=== PATIENT | female | born 2000 | race Caucasian/White ===

== ENCOUNTER 2024-03-03 13:30 | Emergency (ER) | payer SELFPAY ==
[2024-03-03 14:05] VITALS: BP 144/96; PULSE 81; RESP 16; TEMP 36.7; O2SAT 97; BMI 33.5
--- NOTE | 2024-03-03 14:46 | ED_ITS ---
HPI - COVID General: Chief Complaint: Upper Respiratory Infection Stated Complaint: Sore thoart, body aches Time Seen by Provider: 03/03/24 13:35 Source: patient and family Mode of arrival: ambulatory Limitations: no limitations Triage information: Has fever, cough or shortness of breath . Exposure to COVID + person last 14 days History of Present Illness: Patient is a 24-year-old female who presents to ED today along with her significant other and [id number] child all 3 of which are being seen for similar symptoms. Patient states approximately 3 days ago she began developing body aches, chills, low grade subjective fevers that have subsided, non- productive cough, nasal and congestion. She states her significant other began feeling similarly the day before. She states they were recently around her father who was sick with fevers. Patient is not having any abdominal pain or diarrhea. No neck pain or stiffness. No rash. No visual changes. Patient arr keli with stable vital signs. MD complaint: has COVID symptoms Prior covid testing: no COVID 19 common symptoms: positive chills, cough, non-productive cough, body aches and nasal congestion; negative productive cough, dyspnea, fatigue, headache(s), vomiting or diarrhea COVID 19 other sytmptoms: negative chest pain Onset (ago): hour(s) Severity: mild Treatment prior to arrival: none COVID Results: SARS-CoV-2 Antigen (Rapid) negative (Negative) 03/03/24 15:10 Related Data Home Medications Medication Instructions Recorded Confirmed acetaminophen 325 mg capsule 325 mg PO QID PRN 03/05/23 03/05/23 (Tylenol) ibuprofen 200 mg capsule 200 mg PO Q6H PRN 03/05/23 03/05/23 Allergies Allergy/AdvReac Type Severity Reaction Status Date / Time latex Allergy Mild ALGY-RASH Verified 03/05/23 10:01 Review of Systems Const: Reports: chills and body aches; Denies: fatigue or malaise Eyes: Denies: change in vision, blurry vision, photophobia, floaters or seeing flashes ENMT: Reports: nasal congestion; Denies: ear or mastoid pain, nasal discharge or sinus pain Card: Denies: chest pain Resp: Reports: non-productive cough; Denies: dyspnea, productive cough or hemoptysis GI: Denies: abdominal pain, vomiting or diarrhea Musc: Denies: neck pain, back pain, extremity pain or joint pain Skin/Breast: Denies: rash Neuro: Denies: headache(s) PFSH ED PFSH: Medical History Psoriasis Allergic reaction Social History Smoking and tobacco/nicotine status: former use of tobacco/nicotine Quit status (tobacco/nicotine): has quit using Alcohol intake: never Substance/Drug Use: never Current gender identity: Female Physical Exam Const: COMMON NORMALS: no acute distress, average body habitus, patient oriented x3, no limitations, healthy appearing, alert and well nourished GENERAL APPEARANCE: cooperative ORIENTATION/CONSCIOUSNESS: Yes awake, Yes oriented to person, Yes oriented to place and Yes oriented to time HENMT: COMMON NORMALS: normocephalic, atraumatic, hearing grossly normal bilaterally, external ears normal, EAC's normal, TM's normal bilaterally, Normal external nose present, Normal nasal mucous membranes and turbinates present, moist oral mucous membranes and oropharynx normal HEAD & SCALP: normal to inspection, normocephalic and atraumatic FACE & SINUS: normal facial exam and sinuses nontender NOSE: Normal external nose present and Normal nasal mucous membranes and turbinates present EXTERNAL EAR: Yes external ears normal EXTERNAL AUDITORY CANAL: EAC's normal TYMPANIC MEMBRANE: TM's normal bilaterally MOUTH: Normal oral and palatal mucosa present and lip normal THROAT: posterior oropharynx normal, tonsils normal and uvula midline Eye: COMMON NORMALS: Equal, round and reactive pupils present, EOMs intact bilaterally and conjunctivae normal CONJUNCTIVA: Yes conjunctivae normal PUPIL: Yes Equal, round and reactive pupils present Neck/C-Spine: COMMON NORMALS: no lymphadenopathy Resp: COMMON NORMALS: normal respiratory effort and clear to auscultation bilaterally AUSCULTATION: clear to auscultation bilaterally Cardio: COMMON NORMALS: regular rate and regular rhythm RATE: regular rate RHYTHM: regular rhythm Extremity: GENERAL: Yes normal exam except as noted Neuro: COMMON NORMALS: patient oriented x3 SENSORIUM/ORIENTATION: Yes alert, Yes oriented to person, Yes oriented to place and Yes oriented to time Skin: COMMON NORMALS: no rashes or lesions noted GENERAL SKIN EXAM: no rashes or lesions noted Course Vital Signs: Vital signs: Vital Signs Temperature 98.1 F 03/03/24 14:05 Pulse Rate 81 03/03/24 14:05 Respiratory Rate 16 03/03/24 14:05 Blood Pressure 144/96 03/03/24 14:05 Pulse Oximetry 97 03/03/24 14:05 Oxygen Delivery Me thod Room Air 03/03/24 14:05 MDM - COVID Medical Decision Making Patient's COVID is negative however her significant other and sons were both positive making this most likely her diagnosis as well. Symptomatic care discussed. Return precautions given. Medical Records I reviewed the patient's medical records. Lab Data I reviewed the patient's lab results. Laboratory Results SARS-CoV-2 Ag (Rapid) negative (Negative) 03/03/24 15:10 SARS-CoV-2 Antigen (Rapid) negative (Negative) 03/03/24 15:10 No radiology studies performed this visit Discharge Plan Discharge Patient Disposition: Home Clinical Impression: COVID Condition: Stable Prescriptions: No Action acetaminophen [Tylenol] 325 mg capsule 325 mg PO QID PRN ibuprofen 200 mg capsule 200 mg PO Q6H PRN Discharge Orders: Discharge ED (Routine); Ordered 03/03/24 Ordered By: Елена Patton Patient Instructions: COVID-19 (Coronavirus Disease 2019) (ED), Social Distancing Guidelines for COVID-19 (ED) Stand Alone Forms: Work/School Release Coding Level of Care Code ED Saw Straightener for Preeti Floyd
[2024-03-03 15:41] LABS: SARS Covid-2 Antigen negative (Negative)
[2024-03-03 16:55] VITALS: BP 142/91; PULSE 79; O2SAT 100
== END 2024-03-03 16:56 | disposition home or self-care (01) ==
PROVIDERS: Emergency Medicine; Emergency Provider Physician Assistant
DX: U07.1 COVID-19 (principal); Z87.891 Personal history of nicotine dependence
CPT/HCPCS: 87426; 99283

== ENCOUNTER → 2024-11-10 10:05 | Outpatient (BNVA) | payer OTHER, SELFPAY | PROVIDERS: Visit Provider Nurse Practitioner | DX: R00.2 Palpitations (principal) | CPT/HCPCS: 80053; 83001; 83002; 84443; 85025 ==